=== PATIENT | female | born 2000 | race Two or more races ===

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

== ENCOUNTER 2019-11-05 01:36 | Emergency (ER) | payer MEDICAID, OTHER ==
[2019-11-05 02:05] VITALS: BP 130/91; PULSE 77
--- NOTE | 2019-11-05 02:13 | EDM.PDOC ---
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 Treatments PUBLIC RELATIONS CONSULTANT: Reports: Other (see below) Other Treatments PUBLIC RELATIONS CONSULTANT: none Vaginal Pain Score (Numeric/FACES): 5 - Related Data Allergies Allergy/AdvReac Type Severity Reaction Status Date / Time milk Allergy Intermediate Abdominal Verified 05/21/16 20:14 Pain aspirin Allergy Unknown Rash Verified 05/21/16 20:14 Home Meds: Home Meds NK [No Known Home Meds] 11/05/19 [History] Past Medical History HEENT History: Reports: Impaired Vision Genitourinary History: Reports: UTI, Recurrent Psychiatric History: Reports: Depression - Infectious Disease History Infectious Disease History: Reports: Other (See Below) Other Infectious Disease History: STD Social & Family History - Tobacco Use Smoking Status *Q: Current Every Day Smoker Years of Tobacco use: 3 Packs/Tins Daily: 0.5 - Caffeine Use Caffeine Use: Reports: Soda, Tea - Alcohol Use Days Per Week of Alcohol Use: 1 Number of Drinks Per Day: 3 Total Drinks Per Week: 3 - Recreational Drug Use Recreational Drug Use: Yes Recreational Drug Type: Reports: Marijuana/Hashish ED ROS GENERAL - Review of Systems Review Of Systems: See Below Constitutional: Denies: Fever, Chills HEENT: Reports: No Symptoms Respiratory: Reports: No Symptoms Cardiovascular: Reports: No Symptoms GI/Abdominal: Reports: No Symptoms : Reports: Discharge (Vaginal), Dysuria. Denies: Flank Pain, Hematuria ED EXAM, GENERAL - Physical Exam Exam: See Below Exam Limited By: No Limitations General Appearance: Alert, WD/WN, No Apparent Distress Respiratory/Chest: No Respiratory Distress, Lungs Clear, Normal Breath Sounds, No Accessory Muscle Use, Chest Non-Tender Cardiovascular: Regular Rate, Rhythm, No Murmur GI/Abdominal: Soft, Non-Tender Back Exam: Normal Inspection, Full Range of Motion. No: CVA Tenderness (R), CVA Tenderness (L) Course - Vital Signs Last Recorded V/S: Last Vital Signs Temp 97.9 F 11/05/19 01:56 Pulse 77 11/05/19 01:56 Resp 16 11/05/19 01:56 BP 130/91 H 11/05/19 01:56 Pulse Ox 98 11/05/19 01:56 - Orders/Labs/Meds Orders: Active Orders 24 hr Category Date Time Status CHLAMYDIA/GC AMPLIFICATION Stat Lab 11/05/19 02:35 Received CULTURE URINE [RM] Urgent Lab 11/05/19 03:01 Ordered T PALLIDUM SCREENING CASCADE Stat Lab 11/05/19 02:06 Ordered Labs: Laboratory Tests 11/05/19 11/05/19 Range/Units 02:10 02:15 Urine Color Yellow (YELLOW) Urine Appearance Slightly cloudy A (CLEAR) Urine pH 5.5 (5.0-8.0) Ur Specific [place] >= 1.030 (1.008-1.030) Urine Protein Negative (NEGATIVE) mg/dL Urine Glucose (UA) Negative (NEGATIVE) mg/dL Urine Ketones 40 H (NEGATIVE) mg/dL Urine Occult Blood Trace-intact H (NEGATIVE) Urine Nitrite Negative (NEGATIVE) Urine Bilirubin Small H (NEGATIVE) Urine Urobilinogen 0.2 (0.2-1.0) EU/dL Ur Leukocyte Esterase Trace H (NEGATIVE) Urine RBC 0-5 (0-5) Urine WBC 5-10 H (0-5) Ur Epithelial Cells Moderate Amorphous Sediment Not seen Urine Bacteria Moderate Urine Mucus Moderate HIV-1 Ab Rapid Screen Non-reactive (NON-REACT.) Meds: Medications Discontinued Medications Generic Name Dose Route Start Last Admin Trade Name Sreedharq PRN Reason Stop Dose Admin Azithromycin 1,000 mg 11/05/19 03:07 Zithromax PO 11/05/19 03:08 ONETIME ONE Ceftriaxone Sodium 250 mg 11/05/19 03:07 Rocephin IM 11/05/19 03:08 ONETIME ONE Departure - Departure Time of Disposition: 03:11 Disposition: Home, Self-Care 01 Condition: Fair Clinical Impression: STD exposure - Discharge Information Instructions: Sexually Transmitted Disease, [id number] Referrals: PCP,None [Primary Care Provider] - Forms: ED Department Discharge Additional Instructions: Please followup with your primary care provider in 3-5 days if not better, please call return to the emergency department with worsening of symptoms. Sepsis Event Note - Evaluation Sepsis Screening Result: No Definite Risk - Focused Exam Vital Signs: Vital Signs Temp Pulse Resp BP Pulse Ox 11/05/19 01:56 97.9 F 77 16 130/91 H 98 Date Exam was Performed: 11/05/19 Time Exam was Performed: 03:10 - My Orders Last 24 Hours: My Active Orders 11/05/19 02:06 T PALLIDUM SCREENING CASCADE Stat 11/05/19 02:35 CHLAMYDIA/GC AMPLIFICATION Stat 11/05/19 03:01 CULTURE URINE [RM] Urgent - Assessment/Plan Last 24 Hours: My Active Orders 11/05/19 02:06 T PALLIDUM SCREENING CASCADE Stat 11/05/19 02:35 CHLAMYDIA/GC AMPLIFICATION Stat 11/05/19 03:01 CULTURE URINE [RM] Urgent Plan: Assessment Acuity = acute Site and laterality = dysuria Etiology = concern for STD Manifestations = none Location of injury = Home Lab values = HIV 1 and 2 were negative, urinalysis did not show trichomoniasis not a clean-catch for culture Plan Elect to treat empirically 1 g azithromycin and 250 mg IM Rocephin will contact when results become available follow-up primary care as needed This note was dictated using [employer] voice recognition software please call with any questions on syntax or grammar.
[2019-11-05] MEDS ORDERED: cefTRIAXone 500 MG Vial IM ONE (03:07)
[2019-11-05] MEDS ORDERED: Azithromycin 250 MG Tab PO ONE (03:07)
[2019-11-05] MEDS ORDERED: cefTRIAXone 1 GM, Lidocaine 1% 2.1 ML IM ONE ×2 (03:13)
[2019-11-07 17:11] LABS: CHLAMYDIA TRACHOMATIS, NAA Negative (Negative); NEISSERIA GONORRHOEAE, NAA Negative (Negative)
[2019-11-09 18:12] LABS: T PALLIDUM ANTIBODIES Non Reactive (Non Reactive)
== END 2019-11-05 03:46 | disposition home or self-care (01) ==
LOC: JP.ED 01:36
DX: Z20.2 Contact with and (suspected) exposure to infections with a predominantly sexual mode of transmission (principal); R30.0 Dysuria; F17.210 Nicotine dependence, cigarettes, uncomplicated; Z91.011 Allergy to milk products; Z88.6 Allergy status to analgesic agent
CPT/HCPCS: 36415; 81001; 86780; 87449; 87491; 87591; 96372; 99283; A9270; J0696; J2001

== ENCOUNTER 2022-12-23 12:32 | Emergency (ER) | payer MEDICAID, OTHER ==
[2022-12-23 12:52] VITALS: BP 104/57; PULSE 81
[2022-12-23] MEDS ORDERED: Diphtheria,Pertussis(Acell),Tetanus Vaccine 0.5 ML Syringe IM ONE (12:56)
[2022-12-23] MEDS ORDERED: LORazepam 0.5 MG Tab PO ONE (12:56)
[2022-12-23] MEDS ORDERED: Bacitracin Oint 1 GM U/D Packet TOP ONE (12:56)
[2022-12-23] MEDS ORDERED: Lidocaine 1% with EPINEPHrine 1:100,000 50 ML MDV SUBCUT STA (12:56)
[2022-12-23] MEDS ORDERED: Acetaminophen 325 MG Tab PO ONE (13:38)
== END 2022-12-23 14:08 | disposition home or self-care (01) ==
LOC: JP.ED 12:32
DX: S51.851A Open bite of right forearm, initial encounter (principal); Z91.011 Allergy to milk products; Z88.8 Allergy status to other drugs, medicaments and biological substances; Z72.0 Tobacco use; Z23 Encounter for immunization; W54.0XXA Bitten by dog, initial encounter
CPT/HCPCS: 12001; 73090-26-RT; 73090-RT; 90471; 90715; 99282; 99283-25; A9270-GY

== ENCOUNTER 2023-11-15 16:21 | Emergency (ER) | payer MEDICAID ==
[2023-11-15 17:07] VITALS: BP 122/69; PULSE 71
[2023-11-15 17:16] LABS: BASOPHILS ABSOLUTE AUTO 0.06 K/uL (0.00-0.10); BASOPHILS PERCENT AUTO 0.6 % (0.1-1.3); EOSINOPHILS ABSOLUTE AUTO 0.24 K/uL (0.00-0.40); EOSINOPHILS PERCENT AUTO 2.5 % (0.0-5.4); HEMATOCRIT 32.2 % (34.3-46.0); HEMOGLOBIN 11.3 g/dL (11.2-15.5); IMMATURE GRAN ABSOLUTE AUTO 0.03 K/uL (0.00-0.23); IMMATURE GRAN PERCENT AUTO 0.3 % (0.0-0.7); LYMPHOCYTES PERCENT AUTO 26.4 % (11.4-47.7); MEAN CORPUSCULAR HEMOGLOBIN 31.3 pg (31.6-35.5); MEAN CORPUSCULAR HGB CONC 35.1 g/dL (31.6-35.5); MEAN CORPUSCULAR VOLUME 89.2 fL (81.4-99.0); MONOCYTES ABSOLUTE AUTO 0.46 K/uL (0.20-0.90); MONOCYTES PERCENT AUTO 4.9 % (3.3-12.6); NEUTROPHILS ABSOLUTE AUTO 6.17 K/uL (1.0-7.6); NEUTROPHILS PERCENT AUTO 65.3 % (40.0-78.1); PLATELET COUNT,PLT 263 K/uL (130-375); RED BLOOD CELL COUNT 3.61 M/uL (3.77-5.24); WHITE BLOOD CELL COUNT,WBC 9.5 K/uL (3.2-11.0)
== END 2023-11-15 19:52 | disposition home or self-care (01) ==
LOC: JP.ED 16:21
DX: O03.9 Complete or unspecified spontaneous abortion without complication (principal); Z91.011 Allergy to milk products; Z88.8 Allergy status to other drugs, medicaments and biological substances; Z3A.00 Weeks of gestation of pregnancy not specified
CPT/HCPCS: 36415; 76801; 76817; 85025; 99284

== ENCOUNTER 2024-10-26 09:46 | Emergency (ER) | payer MEDICAID ==
[2024-10-26 10:01] VITALS: BP 119/70; PULSE 104
== END 2024-10-26 10:30 | disposition home or self-care (01) ==
LOC: JP.ED 09:46
DX: O20.9 Hemorrhage in early pregnancy, unspecified (principal); Z3A.16 16 weeks gestation of pregnancy; Z91.011 Allergy to milk products; Z88.6 Allergy status to analgesic agent
CPT/HCPCS: 99283

== ENCOUNTER 2025-01-22 22:46 | Emergency (ER) | payer MEDICAID ==
[2025-01-22 23:01] VITALS: BP 111/60; PULSE 74
== END 2025-01-22 23:42 | disposition home or self-care (01) ==
LOC: JP.ED 22:46
DX: Z34.93 Encounter for supervision of normal pregnancy, unspecified, third trimester (principal); Z3A.28 28 weeks gestation of pregnancy; Z91.011 Allergy to milk products; Z88.5 Allergy status to narcotic agent; F17.210 Nicotine dependence, cigarettes, uncomplicated; Z86.16 Personal history of COVID-19; Z79.899 Other long term (current) drug therapy
CPT/HCPCS: 99284